=== PATIENT | female | born 1965 | race Caucasian/White ===

== ENCOUNTER 2023-11-12 05:02 | Day surgery (SDC) | payer BC ==
[2023-11-05 11:52] VITALS: BMI 21.2
[2023-11-12] MEDS ORDERED: LIDOCAINE HCL 1%, 10 MG/ML (20ML VIAL) ONE (09:24)
[2023-11-12] MEDS ORDERED: BUPIVACAINE HCL/PF 0.5% (5MG/ML) 10 ML VIAL ONE (09:25)
[2023-11-12] MEDS ORDERED: PROMETHAZINE HCL 25 MG/1 ML VIAL IVPB PRN (10:57)
[2023-11-12] MEDS ORDERED: ONDANSETRON 4 MG/2 ML VIAL IVPUSH PRN (10:57)
[2023-11-12] MEDS ORDERED: oxyCODONE HCL 5 MG TABLET PO PRN (10:57)
[2023-11-12] MEDS ORDERED: PROPOFOL 20 ML ONE (10:59)
[2023-11-12] MEDS ORDERED: FENTANYL CITRATE/PF 50 MCG/ML VIAL ONE ×4 (10:59→12:53)
[2023-11-12] MEDS ORDERED: MIDAZOLAM HCL 2 MG/2 ML SINGLE DOSE VIAL ONE (11:00)
[2023-11-12] MEDS ORDERED: LIDOCAINE HCL/PF 2% SDV 5ML VIAL ONE (11:00)
[2023-11-12] MEDS ORDERED: ceFAZolin SODIUM 1 GM VIAL ONE (11:00)
[2023-11-12] MEDS ORDERED: LACTATED RINGERS SOLUTION 1,000 ML IV SCH (11:00)
[2023-11-12] MEDS ORDERED: SODIUM CHLORIDE 0.9% P/F 10 ML VIAL IJ ONE (11:00)
[2023-11-12] MEDS: ceFAZolin SODIUM 1 GM VIAL IVPB ONE (11:28)
[2023-11-12] MEDS: LIDOCAINE HCL 1%, 10 MG/ML (50 mL VIAL) INF ONE ×2 (11:37)
[2023-11-12] MEDS: BUPIVACAINE HCL/PF 0.5% (5 MG/ML) 30 ML VIAL IJ ONE ×2 (11:37)
[2023-11-12] MEDS ORDERED: KETOROLAC TROMETHAMINE 30 MG/1 ML VIAL ONE (11:55)
[2023-11-12] MEDS ORDERED: VANCOMYCIN 1,000 MG VIAL (RESTRICTED TO ID ONLY) ONE (11:57)
[2023-11-12 17:31] VITALS: RESP 20; TEMP 97.4
[2023-11-12 17:39] VITALS: BP 125/75; PULSE 70
== END 2023-11-12 15:45 | disposition home or self-care (01) ==
LOC: JASU-SURG 05:02
PROVIDERS: ATTEND Neurological Surgery
PROC: 0JWT0MZ Revision of Stimulator Generator in Trunk Subcutaneous Tissue and Fascia, Open Approach (ICD-10-PCS; principal; 2023-11-12 12:00)
DX: T85.61 Breakdown (mechanical) of other specified internal prosthetic devices, implants and grafts (principal); T85.840A Pain due to nervous system prosthetic devices, implants and grafts, initial encounter; Y82.8 Other medical devices associated with adverse incidents
CPT/HCPCS: 94760